=== PATIENT | female | born 1965 | race Caucasian/White ===

== ENCOUNTER 2023-12-18 11:01 | Observation (INO) ==
[2023-12-18 12:44] LABS: ABS Lymphocytes 0.6 10^3/uL (1.0-4.8); ABS Monocytes 0.2 10^3/uL (0.0-0.9); ABS Neutrophils 4.8 10^3/uL (1.5-7.6); Eosinophil % 0.1 %; Hematocrit 47.1 % (35-45); Hemoglobin 15.9 g/dL (11.5-14.3); Lymphocyte % 11.3 %; Mean Corpuscular Hemoglobin 33.6 pg (27-33); Mean Corpuscular Hgb Conc 33.7 g/dL (31-36); Mean Corpuscular Volume 99.7 fL (80-97); Mean Platelet Volume 8.5 fL (7.5-11.2); Nucleated Red Blood Cells % 0.1 %/100WBC (0.0-0.8); Platelet Count 344 10^3/uL (150-450); Red Blood Count 4.72 10^6/uL (3.63-4.92); Red Cell Distribution Width 14.6 % (12-17); White Blood Count 5.6 10^3/uL (3.8-11.8)
[2023-12-18 12:48] LABS: Urine Appearance Cloudy; Urine Bilirubin Negative (Negative); Urine Blood Negative (Negative); Urine Color Yellow; Urine Glucose Negative (Negative); Urine Ketones Negative (Negative); Urine Nitrite Negative (Negative); Urine Protein Negative (Negative); Urine Specific Gravity 1.014 (1.002-1.030); Urine Urobilinogen Negative (Negative)
[2023-12-18 12:52] LABS: Urine Bacteria 1+ (Absent); Urine Red Blood Cell Trace(0-2/hpf) (Absent); Urine Squamous Epithelial Cell Present (Absent); Urine White Blood Cell 3+(>20/hpf) (Absent)
[2023-12-18 13:06] LABS: ALT 20 U/L (7-52); Albumin/Globulin Ratio 1.1 (1-3); Alkaline Phosphatase 69 U/L (35-149); Anion Gap 4 mmol/L (2-16); Blood Urea Nitrogen 29 mg/dL (6-24); C Reactive Protein 2.95 mg/L (<8.01); CO2 Carbon Dioxide 31 mmol/L (22-32); Calcium 10.6 mg/dL (8.6-10.3); Chloride 104 mmol/L (101-111); Creatinine, Serum 1.45 mg/dL (0.51-0.95); Globulin 3.6 g/dL (2-4); Glucose 101 mg/dL (70-100); Lipase 23 U/L (11.0-82.0); Sodium 139 mmol/L (135-145); Total Bilirubin 0.6 mg/dL (0.2-1.0); Total Protein 7.6 g/dL (6.4-8.9); eGFR CKD-EPI 42.1 (>60)
[2023-12-18] MEDS ORDERED: Iodixanol (CONTRAST) 320 MG/ML 100 ML SDV IV ONE (13:14)
[2023-12-18] MEDS ORDERED: Midazolam 5 mg/5 ml VIAL 1 mg/ml 5 ml VIAL (5 mg) IV SLOW PU ONE (14:17)
[2023-12-18] MEDS ORDERED: Polyethylene Glycol 3350 17 GM PACKET PO PRN (19:19)
[2023-12-18] MEDS ORDERED: Senna TAB 8.6 mg TAB PO PRN (19:20)
[2023-12-18 20:09] LABS: Calcium 9.2 mg/dL (8.6-10.3); Creatinine, Serum 1.27 mg/dL (0.51-0.95); Magnesium 1.8 mg/dL (1.9-2.7); Potassium 3.4 mmol/L (3.5-5.0); eGFR CKD-EPI 49.3 (>60)
[2023-12-18 20:38] LABS: TSH Ultra Thyroid Stim Horm 4.15 mcIU/mL (0.34-5.60)
[2023-12-18] MEDS: Nystatin TOP POWDER 15 GM BTL TOPICAL SCH (21:59)
[2023-12-18] MEDS ORDERED: Magnesium Sulfate 2 gm BAG 2 GM/50 ML BAG IVPB ONE (22:09)
[2023-12-18] MEDS ORDERED: Potassium Chlor 20 meq TAB.ER PO ONE (22:09)
[2023-12-19] MEDS: KCL 20 MEQ/100 ML IVPREMIX 20 MEQ/100 ML BAG IV SCH ×2 (01:17→03:22)
[2023-12-19 05:52] LABS: ABS Basophils 0.1 10^3/uL (0.0-0.1); ABS Eosinophils 0.1 10^3/uL (0.0-0.5); ABS Lymphocytes 1.8 10^3/uL (1.0-4.8); ABS Monocytes 0.4 10^3/uL (0.0-0.9); ABS Neutrophils 1.5 10^3/uL (1.5-7.6); Eosinophil % 1.4 %; Hematocrit 43.3 % (35-45); Hemoglobin 14.6 g/dL (11.5-14.3); Mean Corpuscular Hemoglobin 33.5 pg (27-33); Mean Corpuscular Hgb Conc 33.7 g/dL (31-36); Mean Corpuscular Volume 99.5 fL (80-97); Mean Platelet Volume 8.3 fL (7.5-11.2); Platelet Count 294 10^3/uL (150-450); Red Blood Count 4.35 10^6/uL (3.63-4.92); Red Cell Distribution Width 14.5 % (12-17); White Blood Count 3.8 10^3/uL (3.8-11.8)
[2023-12-19 06:05] LABS: Calcium 9.3 mg/dL (8.6-10.3); Creatinine, Serum 1.28 mg/dL (0.51-0.95); Magnesium 2.7 mg/dL (1.9-2.7); Potassium 4.3 mmol/L (3.5-5.0); eGFR CKD-EPI 48.9 (>60)
[2023-12-19] MEDS ORDERED: cefTRIAXone 1 gm/50 mL D5W 1 GM/50 ML BAG IV SCH (14:00)
[2023-12-19] MEDS: Nystatin TOP POWDER 15 GM BTL TOPICAL SCH ×3 (14:13→20:02)
[2023-12-19] MEDS ORDERED: NS 0.9% 1000 ml BAG 1,000 ML IV SCH (14:45)
[2023-12-20 08:45] LABS: ABS Lymphocytes 1.2 10^3/uL (1.0-4.8); ABS Monocytes 0.4 10^3/uL (0.0-0.9); ABS Neutrophils 2.2 10^3/uL (1.5-7.6); ABS Nucleated RBC 0.01 10^3/ul; Eosinophil % 1.2 %; Hematocrit 44.3 % (35-45); Lymphocyte % 31.1 %; Mean Corpuscular Hemoglobin 33.7 pg (27-33); Mean Corpuscular Hgb Conc 33.9 g/dL (31-36); Mean Corpuscular Volume 99.3 fL (80-97); Mean Platelet Volume 8.4 fL (7.5-11.2); Nucleated Red Blood Cells % 0.1 %/100WBC (0.0-0.8); Platelet Count 337 10^3/uL (150-450); Red Blood Count 4.47 10^6/uL (3.63-4.92); Red Cell Distribution Width 14.3 % (12-17); White Blood Count 3.8 10^3/uL (3.8-11.8)
[2023-12-20 09:14] LABS: Creatinine, Serum 1.34 mg/dL (0.51-0.95); eGFR CKD-EPI 46.2 (>60)
[2023-12-20] MEDS: Nystatin TOP POWDER 15 GM BTL TOPICAL SCH ×2 (09:23→14:28)
[2023-12-20 10:10] VITALS: BP 111/74
[2023-12-20] MEDS ORDERED: Lidocaine 5% OINT TUBE TOPICAL PRN (13:06)
[2023-12-20] MEDS ORDERED: Lidocaine 4% GEL 10 GM TUBE TOPICAL ONE (13:32)
[2023-12-20] MEDS ORDERED: Lidocaine 2% JELLY 6 ML Topical TOPICAL ONE (14:00)
[2023-12-20] MEDS ORDERED: Nitrofurantoin (monohydrate/macrocrystals) 100 mg CAP PO SCH (21:00)
== END 2023-12-20 15:05 ==
LOC: ED 11:01 → EDHOLD 11:01 → SUATTDRO 17:12 → MED 20:34
PROVIDERS: ADMIT Internal Medicine; ATTEND Hospitalist

== ENCOUNTER 2024-01-18 10:48 | Inpatient (IN) ==
[2024-01-18] MEDS ORDERED: LORazepam 2 mg VIAL 1 ml ONE (10:52)
[2024-01-18] MEDS ORDERED: Lorazepam PYXIS KEY PRN ×3 (11:01→18:38)
[2024-01-18 11:22] LABS: ABS Lymphocytes 0.5 10^3/uL (1.0-4.8); ABS Monocytes 0.1 10^3/uL (0.0-0.9); Hematocrit 44.4 % (35-45); Hemoglobin 14.8 g/dL (11.5-14.3); Lymphocyte % 6.9 %; Mean Corpuscular Hemoglobin 33.8 pg (27-33); Mean Corpuscular Hgb Conc 33.4 g/dL (31-36); Mean Corpuscular Volume 101.3 fL (80-97); Mean Platelet Volume 8.7 fL (7.5-11.2); Platelet Count 414 10^3/uL (150-450); Red Blood Count 4.38 10^6/uL (3.63-4.92); Red Cell Distribution Width 14.3 % (12-17); White Blood Count 6.6 10^3/uL (3.8-11.8)
[2024-01-18] MEDS: LORazepam 2 mg VIAL 1 ml IV PUSH ONE ×2 (11:27→14:04)
[2024-01-18] MEDS: NS 0.9% 1000 ml BAG 1,000 ML IV ONE (11:28)
[2024-01-18 11:44] LABS: High Sens Troponin Baseline 27 pg/mL (<15)
[2024-01-18] MEDS: Linezolid 600 MG IVPREMIX(*) 600 MG/300 ML BAG IVPB ONE (11:57)
[2024-01-18 12:02] LABS: ALT 24 U/L (7-52); Albumin 3.7 g/dL (3.2-5.2); Albumin/Globulin Ratio 1.3 (1-3); Alkaline Phosphatase 64 U/L (35-149); Anion Gap 15 mmol/L (2-16); Blood Urea Nitrogen 29 mg/dL (6-24); C Reactive Protein 3.25 mg/L (<8.01); CO2 Carbon Dioxide 24 mmol/L (22-32); Calcium 9.7 mg/dL (8.6-10.3); Chloride 106 mmol/L (101-111); Creatinine, Serum 1.38 mg/dL (0.51-0.95); Globulin 2.8 g/dL (2-4); Glucose 115 mg/dL (70-100); Sodium 145 mmol/L (135-145); Total Bilirubin 0.5 mg/dL (0.2-1.0); Total Protein 6.5 g/dL (6.4-8.9); eGFR CKD-EPI 44.6 (>60)
[2024-01-18 12:13] LABS: INR 1.24 (0.83-1.13)
[2024-01-18 12:14] LABS: Activated Partial Thrombo Time 22.5 seconds (26.0-38.0)
[2024-01-18 12:29] LABS: Urine Appearance Clear; Urine Bilirubin Negative (Negative); Urine Blood Trace (Negative); Urine Color Colorless; Urine Glucose Negative (Negative); Urine Ketones Negative (Negative); Urine Nitrite Negative (Negative); Urine Protein Negative (Negative); Urine Specific Gravity 1.012 (1.002-1.030); Urine Urobilinogen Negative (Negative)
[2024-01-18 13:27] LABS: High Sensitivity Troponin 1 Hr 36 pg/mL (<15)
[2024-01-18 13:53] LABS: Magnesium 1.8 mg/dL (1.9-2.7)
[2024-01-18 14:04] LABS: Urine Bacteria Absent /HPF (Absent); Urine Red Blood Cell Absent /HPF (0-Trace); Urine Squamous Epithelial Cell Present /HPF (Absent); Urine White Blood Cell Trace(0-5/hpf) /HPF (0-Trace)
[2024-01-18] MEDS: levETIRAcetam 1000MG IVPREMIX 1,000 MG/100 ML BAG IVPB ONE (15:15)
[2024-01-18] MEDS ORDERED: LORazepam 2 mg VIAL 1 ml IV PUSH PRN (18:38)
[2024-01-18] MEDS: Magnesium Sulfate 2 gm BAG 2 GM/50 ML BAG IVPB ONE (19:59)
[2024-01-18] MEDS: Enoxaparin 40 MG/0.4 ML SYR SUBCUT SCH (20:00)
[2024-01-18] MEDS: Nystatin TOP POWDER 15 GM BTL TOPICAL SCH (20:06)
[2024-01-19] MEDS: Linezolid 600 MG IVPREMIX(*) 600 MG/300 ML BAG IVPB SCH (00:03)
[2024-01-19] MEDS: levETIRAcetam 500 MG IVPREMIX 500 MG/100 ML BAG IV SCH (03:16)
[2024-01-19 04:35] LABS: ABS Basophils 0.1 10^3/uL (0.0-0.1); ABS Lymphocytes 1.9 10^3/uL (1.0-4.8); ABS Monocytes 0.5 10^3/uL (0.0-0.9); ABS Neutrophils 3.4 10^3/uL (1.5-7.6); ABS Nucleated RBC 0.01 10^3/ul; Eosinophil % 0.2 %; Hemoglobin 13.4 g/dL (11.5-14.3); Lymphocyte % 32.3 %; Mean Corpuscular Hemoglobin 33.2 pg (27-33); Mean Corpuscular Hgb Conc 33.6 g/dL (31-36); Mean Corpuscular Volume 98.9 fL (80-97); Mean Platelet Volume 7.9 fL (7.5-11.2); Nucleated Red Blood Cells % 0.1 %/100WBC (0.0-0.8); Platelet Count 348 10^3/uL (150-450); Red Blood Count 4.05 10^6/uL (3.63-4.92); Red Cell Distribution Width 14.3 % (12-17); White Blood Count 5.9 10^3/uL (3.8-11.8)
[2024-01-19 05:10] LABS: Calcium 8.4 mg/dL (8.6-10.3); Creatinine, Serum 1.03 mg/dL (0.51-0.95); Magnesium 2.4 mg/dL (1.9-2.7); Potassium 3.3 mmol/L (3.5-5.0); eGFR CKD-EPI 63.4 (>60)
[2024-01-19] MEDS: KCL 20 MEQ/100 ML IVPREMIX 20 MEQ/100 ML BAG IV SCH (05:50)
[2024-01-19] MEDS: KCL 20 MEQ/100 ML IVPREMIX 20 MEQ/100 ML BAG ONE (07:32)
[2024-01-19] MEDS: Calcium/Vitamin D TAB 250/125 TAB PO SCH (15:12)
[2024-01-20 05:41] LABS: ABS Basophils 0.1 10^3/uL (0.0-0.1); ABS Lymphocytes 1.8 10^3/uL (1.0-4.8); ABS Monocytes 0.5 10^3/uL (0.0-0.9); ABS Neutrophils 2.8 10^3/uL (1.5-7.6); ABS Nucleated RBC 0.01 10^3/ul; Eosinophil % 0.3 %; Hematocrit 43.7 % (35-45); Hemoglobin 14.8 g/dL (11.5-14.3); Mean Corpuscular Hemoglobin 33.3 pg (27-33); Mean Corpuscular Hgb Conc 33.8 g/dL (31-36); Mean Corpuscular Volume 98.4 fL (80-97); Mean Platelet Volume 8.3 fL (7.5-11.2); Nucleated Red Blood Cells % 0.2 %/100WBC (0.0-0.8); Platelet Count 354 10^3/uL (150-450); Red Blood Count 4.44 10^6/uL (3.63-4.92); Red Cell Distribution Width 13.9 % (12-17); White Blood Count 5.1 10^3/uL (3.8-11.8)
[2024-01-20 05:58] LABS: Creatinine, Serum 0.94 mg/dL (0.51-0.95); Potassium 3.8 mmol/L (3.5-5.0); eGFR CKD-EPI 70.8 (>60)
[2024-01-20 10:58] LABS: Levetiracetam <1.0 mcg/mL
[2024-01-20] MEDS ORDERED: Lorazepam PYXIS KEY PRN (11:58)
[2024-01-20 13:01] LABS: Lamotrigine 5.9 mcg/mL (3.0-15.0)
[2024-01-20] MEDS: LORazepam 2 mg VIAL 1 ml IV PUSH ONE ×2 (13:36→13:44)
[2024-01-21 05:05] LABS: ABS Lymphocytes 1.5 10^3/uL (1.0-4.8); ABS Monocytes 0.3 10^3/uL (0.0-0.9); ABS Neutrophils 2.3 10^3/uL (1.5-7.6); Eosinophil % 0.6 %; Hematocrit 43.5 % (35-45); Hemoglobin 14.7 g/dL (11.5-14.3); Lymphocyte % 36.3 %; Mean Corpuscular Hemoglobin 33.3 pg (27-33); Mean Corpuscular Hgb Conc 33.7 g/dL (31-36); Mean Corpuscular Volume 98.9 fL (80-97); Platelet Count 310 10^3/uL (150-450); White Blood Count 4.1 10^3/uL (3.8-11.8)
[2024-01-21 06:07] LABS: Calcium 9.1 mg/dL (8.6-10.3); Creatinine, Serum 1.19 mg/dL (0.51-0.95); Potassium 4.3 mmol/L (3.5-5.0); eGFR CKD-EPI 53.3 (>60)
[2024-01-23] MEDS: Senna TAB 8.6 mg TAB PO PRN (08:31)
[2024-01-23 10:22] VITALS: BP 100/56
[2024-01-23] MEDS ORDERED: Polyethylene Glycol 3350 17 GM PACKET PO PRN (11:37)
[2024-01-23] MEDS ORDERED: Magnesium Hydroxide LIQ 30 ML UDC PO PRN (11:37)
== END 2024-01-23 13:02 | disposition home or self-care (01) | DRG 101 ==
LOC: ED 10:48 → EDHOLD 16:29 → SUATTDRO 16:29 → ICU 17:18 → MEDTELE 01-19 08:46
PROVIDERS: ADMIT Surgery Surgical Critical Care; ATTEND Internal Medicine

== ENCOUNTER 2024-04-20 08:22 | Observation (INO) ==
[2024-04-20 09:38] LABS: ABS Basophils 0.1 10^3/uL (0.0-0.1); ABS Lymphocytes 1.5 10^3/uL (1.0-4.8); ABS Monocytes 0.4 10^3/uL (0.0-0.9); ABS Neutrophils 4.1 10^3/uL (1.5-7.6); Eosinophil % 0.2 %; Hematocrit 41.3 % (35-45); Hemoglobin 13.9 g/dL (11.5-14.3); Lymphocyte % 24.5 %; Mean Corpuscular Hemoglobin 32.7 pg (27-33); Mean Corpuscular Hgb Conc 33.6 g/dL (31-36); Mean Corpuscular Volume 97.3 fL (80-97); Mean Platelet Volume 8.3 fL (7.5-11.2); Nucleated Red Blood Cells % 0.1 %/100WBC (0.0-0.8); Platelet Count 361 10^3/uL (150-450); Red Blood Count 4.25 10^6/uL (3.63-4.92); Red Cell Distribution Width 15.4 % (12-17); White Blood Count 6.1 10^3/uL (3.8-11.8)
[2024-04-20] MEDS: levETIRAcetam IV 250 MG in NS 0.9% 100 ml BAG 100 ML IVPB SCH (10:03)
[2024-04-20] MEDS: levETIRAcetam IV 250 MG in NS 0.9% 100 ml BAG 100 ML IVPB ONE ×2 (10:05→13:41)
[2024-04-20 10:42] LABS: Albumin 3.4 g/dL (3.2-5.2); Albumin/Globulin Ratio 1.5 (1-3); Calcium 8.9 mg/dL (8.6-10.3); Creatinine, Serum 1.21 mg/dL (0.51-0.95); Globulin 2.3 g/dL (2-4); Magnesium 1.8 mg/dL (1.9-2.7); Potassium 3.9 mmol/L (3.5-5.0); Total Bilirubin 0.4 mg/dL (0.2-1.0); Total Protein 5.7 g/dL (6.4-8.9); eGFR CKD-EPI 52.3 (>60)
[2024-04-20] MEDS: NS 0.9% 1000 ml BAG 1,000 ML IV ONE ×2 (10:48→17:50)
[2024-04-20] MEDS: cefTRIAXone 1 gm/50 mL D5W 1 GM/50 ML BAG IV ONE (12:06)
[2024-04-20] MEDS: Iodixanol (CONTRAST) 320 MG/ML 100 ML SDV IV ONE (16:01)
[2024-04-20] MEDS ORDERED: Polyethylene Glycol 3350 17 GM PACKET PO PRN (18:29)
[2024-04-20] MEDS ORDERED: Senna TAB 8.6 mg TAB PO PRN (18:29)
[2024-04-20] MEDS: Magnesium Sulfate 2 gm BAG 2 GM/50 ML BAG IVPB ONE (19:15)
[2024-04-20] MEDS: Enoxaparin 30 MG/0.3 ML SYR SUBCUT SCH (19:17)
[2024-04-20] MEDS ORDERED: guaiFENesin 100 mg/5 ml LIQ unit dose cup PO PRN (20:29)
[2024-04-20] MEDS ORDERED: Magnesium Hydroxide LIQ 30 ML UDC PO PRN (22:45)
[2024-04-20] MEDS: Polyethylene Glycol 3350 17 GM PACKET PO SCH (22:49)
[2024-04-20] MEDS: Senna TAB 8.6 mg TAB PO SCH (22:49)
[2024-04-20] MEDS: Nystatin TOP POWDER 15 GM BTL TOPICAL SCH (22:53)
[2024-04-20] MEDS: Magnesium Hydroxide LIQ 30 ML UDC PO SCH (23:56)
[2024-04-21] MEDS: levETIRAcetam 500 MG IVPREMIX 500 MG/100 ML BAG IV SCH (02:10)
[2024-04-21 06:17] LABS: ABS Monocytes 0.3 10^3/uL (0.0-0.9); ABS Neutrophils 3.9 10^3/uL (1.5-7.6); ABS Nucleated RBC 0.01 10^3/ul; Eosinophil % 0.2 %; Hematocrit 46.8 % (35-45); Lymphocyte % 18.5 %; Mean Corpuscular Hgb Conc 32.1 g/dL (31-36); Mean Corpuscular Volume 99.7 fL (80-97); Mean Platelet Volume 8.1 fL (7.5-11.2); Nucleated Red Blood Cells % 0.1 %/100WBC (0.0-0.8); Platelet Count 282 10^3/uL (150-450); Red Blood Count 4.69 10^6/uL (3.63-4.92); Red Cell Distribution Width 15.4 % (12-17); White Blood Count 5.2 10^3/uL (3.8-11.8)
[2024-04-21 06:38] LABS: Calcium 8.3 mg/dL (8.6-10.3); Creatinine, Serum 0.94 mg/dL (0.51-0.95); Magnesium 2.5 mg/dL (1.9-2.7); Potassium 4.3 mmol/L (3.5-5.0); eGFR CKD-EPI 70.8 (>60)
[2024-04-21] MEDS: Nitrofurantoin (monohydrate/macrocrystals) 100 mg CAP PO SCH (21:24)
[2024-04-22 15:46] VITALS: BP 99/67
[2024-04-23 12:59] LABS: Lamotrigine 4.8 mcg/mL (3.0-15.0)
== END 2024-04-22 18:15 ==
LOC: EDHOLD 08:22 → ED 08:22 → SUATTDRO 18:29 → MEDTELE 04-21 00:01
PROVIDERS: ADMIT Internal Medicine; ATTEND Internal Medicine

== ENCOUNTER 2024-12-14 20:38 | Inpatient (IN) ==
[2024-12-14] MEDS ORDERED: Vancomycin 1,000 MG in NS 0.9% 250 ml 250 ML IVPB SCH (21:00)
[2024-12-14 21:18] LABS: ABS Basophils 0.1 10^3/uL (0.0-0.1); ABS Lymphocytes 2.7 10^3/uL (1.0-4.8); ABS Monocytes 0.8 10^3/uL (0.0-0.9); ABS Neutrophils 8.5 10^3/uL (1.5-7.6); ABS Nucleated RBC 0.03 10^3/ul; Eosinophil % 0.1 %; Hematocrit 49.3 % (35-45); Hemoglobin 16.1 g/dL (11.5-14.3); Lymphocyte % 22.5 %; Mean Corpuscular Hgb Conc 32.6 g/dL (31-36); Mean Corpuscular Volume 101.3 fL (80-97); Mean Platelet Volume 10.4 fL (7.5-11.2); Nucleated Red Blood Cells % 0.3 %/100WBC (0.0-0.8); Platelet Count 313 10^3/uL (150-450); Red Blood Count 4.86 10^6/uL (3.63-4.92); Red Cell Distribution Width 15.3 % (12-17)
[2024-12-14] MEDS: Lactated Ringers SEPSIS* BAG 2,180 ML IV ONE (21:22)
[2024-12-14 21:28] LABS: Activated Partial Thrombo Time 27.2 seconds (26.0-38.0); INR 1.28 (0.85-1.14)
[2024-12-14 21:35] LABS: Venous Bicarbonate HCO3 27.6 mmol/L (24-28)
[2024-12-14 21:54] LABS: Albumin 3.3 g/dL (3.5-5.7); Albumin/Globulin Ratio 1.1 (1-3); C Reactive Protein 34.39 mg/L (<8.01); Calcium 9.4 mg/dL (8.6-10.3); Creatinine, Serum 1.82 mg/dL (0.51-0.95); Globulin 3.1 g/dL (2-4); Total Bilirubin 0.7 mg/dL (0.2-1.0); Total Protein 6.4 g/dL (6.4-8.9); eGFR CKD-EPI 31.8 (>60)
[2024-12-14] MEDS: Piperacillin/Tazobac 3.375 BAG 3.375 GM/100 ML BAG IV ONE (22:01)
[2024-12-14] MEDS: Acetaminophen IV 1 GM/100ML 1,000 MG/100 ML BAG IV ONE (22:18)
[2024-12-14 22:19] LABS: High Sensitivity Troponin 1 Hr 57 pg/mL (<15)
[2024-12-14] MEDS: Vancomycin 1,250 MG in NS 0.9% 250 ml 250 ML IVPB ONE (22:21)
[2024-12-14] MEDS: Iodixanol 320 (CONTRAST) 100 ML SDV IV ONE (23:26)
[2024-12-14 23:51] LABS: Urine Appearance Clear; Urine Bilirubin Negative (Negative); Urine Blood 1+ (Negative); Urine Color Light-Yellow; Urine Glucose Negative (Negative); Urine Ketones Negative (Negative); Urine Nitrite Negative (Negative); Urine Protein Trace (Negative); Urine Specific Gravity 1.027 (1.002-1.030); Urine Urobilinogen Negative (Negative); Urine pH 6.5 (5.0-8.0)
[2024-12-15 00:06] LABS: Urine Bacteria Absent /HPF (Absent); Urine Red Blood Cell 3+(>10/hpf) /HPF (0-Trace); Urine Squamous Epithelial Cell Present /HPF (Absent); Urine White Blood Cell 3+(>20/hpf) /HPF (0-Trace)
[2024-12-15] MEDS: Heparin 5000 UNITS/ML 1 mL VIAL IV SCH (00:21)
[2024-12-15] MEDS: Heparin DRIP 25,000 UNITS BAG 25,000 UNITS/250 ML BAG IV SCH (00:23)
[2024-12-15 01:15] LABS: Blood Urea Nitrogen 32 mg/dL (6-24); Creatinine, Serum 1.61 mg/dL (0.51-0.95); eGFR CKD-EPI 36.9 (>60)
[2024-12-15 01:52] LABS: Anion Gap 17 mmol/L (2-16); CO2 Carbon Dioxide 22 mmol/L (22-32); Calcium 7.8 mg/dL (8.6-10.3); Chloride 120 mmol/L (101-111); Glucose 182 mg/dL (70-100); Sodium 159 mmol/L (135-145)
[2024-12-15] MEDS: D5W 1/2 NS 1000 ml BAG 1,000 ML IV SCH (02:13)
[2024-12-15 02:27] LABS: Potassium, Whole Blood 3.8 mmol/L (3.4-4.5)
[2024-12-15 02:31] LABS: Hematocrit 40.6 % (35-45); Hemoglobin 13.1 g/dL (11.5-14.3); Mean Corpuscular Hemoglobin 33.1 pg (27-33); Mean Corpuscular Hgb Conc 32.3 g/dL (31-36); Mean Corpuscular Volume 102.6 fL (80-97); Mean Platelet Volume 9.9 fL (7.5-11.2); Platelet Count 243 10^3/uL (150-450); Red Blood Count 3.95 10^6/uL (3.63-4.92); Red Cell Distribution Width 14.9 % (12-17); White Blood Count 12.7 10^3/uL (3.8-11.8)
[2024-12-15] MEDS ORDERED: Sulfur Hexaflouride MICROSPHR 25 MG VIAL IV PRN (02:46)
[2024-12-15] MEDS ORDERED: Azithromycin 500 mg/250 ml NS 500 MG/250 ML BAG IVPB SCH ×2 (03:00→05:00)
[2024-12-15] MEDS: cefTRIAXone 1 gm/50 mL D5W 1 GM/50 ML BAG IV SCH ×3 (03:14→17:20)
[2024-12-15] MEDS: Azithromycin 500 mg/250 ml NS 500 MG/250 ML BAG IVPB SCH (05:36)
[2024-12-15 06:58] LABS: ABS Basophils 0.2 10^3/uL (0.0-0.1); ABS Lymphocytes 1.6 10^3/uL (1.0-4.8); ABS Monocytes 0.6 10^3/uL (0.0-0.9); ABS Neutrophils 9.1 10^3/uL (1.5-7.6); ABS Nucleated RBC 0.01 10^3/ul; Eosinophil % 0.1 %; Hemoglobin 12.2 g/dL (11.5-14.3); Lymphocyte % 13.8 %; Mean Corpuscular Hemoglobin 33.7 pg (27-33); Mean Corpuscular Hgb Conc 32.9 g/dL (31-36); Mean Corpuscular Volume 102.5 fL (80-97); Mean Platelet Volume 10.2 fL (7.5-11.2); Nucleated Red Blood Cells % 0.1 %/100WBC (0.0-0.8); Platelet Count 209 10^3/uL (150-450); Red Blood Count 3.61 10^6/uL (3.63-4.92); Red Cell Distribution Width 15.5 % (12-17); White Blood Count 11.5 10^3/uL (3.8-11.8)
[2024-12-15 07:02] LABS: Calcium 7.9 mg/dL (8.6-10.3); Creatinine, Serum 1.53 mg/dL (0.51-0.95); Potassium 3.3 mmol/L (3.5-5.0); eGFR CKD-EPI 39.2 (>60)
[2024-12-15] MEDS ORDERED: Senna/Docusate 8.6/50 mg (NF) TAB PO SCH (09:00)
[2024-12-15] MEDS: Senna TAB 8.6 mg TAB PO SCH (11:07)
[2024-12-15] MEDS: Docusate LIQ 100 MG/10 ML UDC PO SCH (11:07)
[2024-12-15] MEDS: Lactated Ringers 1000 ml BAG 1,000 ML IV SCH (11:28)
[2024-12-15] MEDS: levETIRAcetam IV 250 MG in NS 0.9% 100 ml BAG 100 ML IVPB SCH (12:53)
[2024-12-15] MEDS ORDERED: Etomidate 40 mg/20 ml (2 MG/ML) 20 ml VIAL (40 mg) ONE (13:12)
[2024-12-15] MEDS ORDERED: Midazolam 10 mg/10 ml VIAL 1 mg/ml 10 ml VIAL (10 mg) ONE (13:12)
[2024-12-15 13:14] LABS: Calcium 6.9 mg/dL (8.6-10.3); Creatinine, Serum 1.06 mg/dL (0.51-0.95); Potassium 3.2 mmol/L (3.5-5.0); eGFR CKD-EPI 60.9 (>60)
[2024-12-15 15:27] LABS: Anion Gap 8 mmol/L (2-16); Blood Urea Nitrogen 23 mg/dL (6-24); CO2 Carbon Dioxide 26 mmol/L (22-32); Calcium 8.2 mg/dL (8.6-10.3); Chloride 119 mmol/L (101-111); Creatinine, Serum 1.15 mg/dL (0.51-0.95); Glucose 100 mg/dL (70-100); Sodium 153 mmol/L (135-145); eGFR CKD-EPI 55.2 (>60)
[2024-12-15] MEDS: levETIRAcetam 500 MG IVPREMIX 500 MG/100 ML BAG IV SCH (17:49)
[2024-12-15 18:48] LABS: Calcium 7.9 mg/dL (8.6-10.3); Creatinine, Serum 1.06 mg/dL (0.51-0.95); eGFR CKD-EPI 60.9 (>60)
[2024-12-15] MEDS: KCL 20 MEQ/100 ML IVPREMIX 20 MEQ/100 ML BAG IV SCH (19:58)
[2024-12-15] MEDS: Norepinephrine 32MCG/ML D5WBAG 8,000 MCG/250 ML BAG IV SCH (22:50)
[2024-12-15] MEDS: Propofol 10 mg/ml 100 ML BTL 1,000 MG/100 ML BTL IV SCH (22:55)
[2024-12-15] MEDS: Midazolam 2 mg/2 ml VIAL 1 mg/ml 2 ml VIAL (2 mg) IV SLOW PU ONE (23:34)
[2024-12-15] MEDS: fentaNYL 100 mcg/2 ml 50 MCG/ML VIAL IV SLOW PU PRN (23:36)
[2024-12-16] MEDS: Etomidate 40 mg/20 ml (2 MG/ML) 20 ml VIAL (40 mg) ONE (01:29)
[2024-12-16] MEDS: Rocuronium 50 mg VIAL 10 mg/ml 5 ml VIAL (50 mg) ONE (01:29)
[2024-12-16 02:38] LABS: Hematocrit 37.3 % (35-45); Hemoglobin 12.2 g/dL (11.5-14.3); Mean Corpuscular Hemoglobin 33.4 pg (27-33); Mean Corpuscular Hgb Conc 32.7 g/dL (31-36); Mean Corpuscular Volume 102.3 fL (80-97); Mean Platelet Volume 10.3 fL (7.5-11.2); Platelet Count 274 10^3/uL (150-450); Red Blood Count 3.64 10^6/uL (3.63-4.92); Red Cell Distribution Width 14.9 % (12-17); White Blood Count 16.7 10^3/uL (3.8-11.8)
[2024-12-16] MEDS: Midazolam 2 mg/2 ml VIAL 1 mg/ml 2 ml VIAL (2 mg) ONE (02:52)
[2024-12-16] MEDS: Midazolam 2 mg/2 ml VIAL 1 mg/ml 2 ml VIAL (2 mg) IV SLOW PU ONE (02:53)
[2024-12-16] MEDS: Famotidine IV 10 MG/ML 2 ml VIAL (20 mg) IV SLOW PU SCH (02:54)
[2024-12-16 03:08] LABS: Albumin 2.5 g/dL (3.5-5.7); Albumin/Globulin Ratio 1.1 (1-3); Creatinine, Serum 1.02 mg/dL (0.51-0.95); Globulin 2.2 g/dL (2-4); Magnesium 1.8 mg/dL (1.9-2.7); Potassium 3.5 mmol/L (3.5-5.0); Total Bilirubin 0.8 mg/dL (0.2-1.0); Total Protein 4.7 g/dL (6.4-8.9); eGFR CKD-EPI 63.8 (>60)
[2024-12-16 03:12] LABS: ABS Eosinophils 0.1 10^3/uL (0.0-0.5); ABS Lymphocytes 2.5 10^3/uL (1.0-4.8); ABS Monocytes 0.4 10^3/uL (0.0-0.9); ABS Neutrophils 13.7 10^3/uL (1.5-7.6); ABS Nucleated RBC 0.08 10^3/ul; Eosinophil % 0.5 %; Lymphocyte % 14.9 %; Nucleated Red Blood Cells % 0.5 %/100WBC (0.0-0.8)
[2024-12-16] MEDS: Chlorhexidine MOUTHWASH 0.12% 15 ML UDC TOPICAL SCH (03:18)
[2024-12-16] MEDS: Potassium Chloride LIQUID 20 MEQ/15 ML LIQUID PO ONE ×2 (03:19→11:10)
[2024-12-16] MEDS: Magnesium Sulfate 2 gm BAG 2 GM/50 ML BAG IVPB ONE ×2 (03:43→11:10)
[2024-12-16] MEDS: KCL 20 MEQ/100 ML IVPREMIX 20 MEQ/100 ML BAG IV SCH (03:44)
[2024-12-16] MEDS ORDERED: D5W 500 ml BAG 500 ML IV SCH (05:00)
[2024-12-16 05:43] LABS: Resp Rate 16
[2024-12-16 05:44] LABS: PCO2 Arterial 35 mmHg (35-45); PO2 Arterial 119 mmHg (80-100)
[2024-12-16] MEDS: Azithromycin 500 mg/250 ml NS 500 MG/250 ML BAG IVPB SCH (06:05)
[2024-12-16] MEDS: Levothyroxine 100 MCG/5 ML VIAL IV SCH (07:44)
[2024-12-16] MEDS: Senna TAB 8.6 mg TAB NG TUBE SCH (10:01)
[2024-12-16] MEDS: Enoxaparin 60 MG/0.6 ML SYR SUBCUT SCH (10:02)
[2024-12-16 15:40] LABS: C Reactive Protein 90.68 mg/L (<8.01); Phosphorus 2.1 mg/dL (2.5-5.0)
[2024-12-16 17:05] LABS: Anion Gap 4 mmol/L (2-16); Blood Urea Nitrogen 13 mg/dL (6-24); CO2 Carbon Dioxide 23 mmol/L (22-32); Calcium 7.7 mg/dL (8.6-10.3); Chloride 116 mmol/L (101-111); Creatinine, Serum 1.04 mg/dL (0.51-0.95); Glucose 217 mg/dL (70-100); Sodium 143 mmol/L (135-145); eGFR CKD-EPI 62.3 (>60)
[2024-12-16] MEDS: levETIRAcetam 500 MG IVPREMIX 500 MG/100 ML BAG IV SCH (17:34)
[2024-12-17 04:16] LABS: ABS Basophils 0.1 10^3/uL (0.0-0.1); ABS Eosinophils 0.1 10^3/uL (0.0-0.5); ABS Lymphocytes 1.8 10^3/uL (1.0-4.8); ABS Monocytes 0.4 10^3/uL (0.0-0.9); ABS Neutrophils 8.8 10^3/uL (1.5-7.6); ABS Nucleated RBC 0.02 10^3/ul; Eosinophil % 0.8 %; Hematocrit 32.7 % (35-45); Hemoglobin 10.7 g/dL (11.5-14.3); Lymphocyte % 16.1 %; Mean Corpuscular Hemoglobin 33.3 pg (27-33); Mean Corpuscular Hgb Conc 32.9 g/dL (31-36); Mean Corpuscular Volume 101.2 fL (80-97); Mean Platelet Volume 10.2 fL (7.5-11.2); Nucleated Red Blood Cells % 0.2 %/100WBC (0.0-0.8); Platelet Count 263 10^3/uL (150-450); Red Blood Count 3.23 10^6/uL (3.63-4.92); Red Cell Distribution Width 14.9 % (12-17); White Blood Count 11.1 10^3/uL (3.8-11.8)
[2024-12-17 04:55] LABS: Albumin 2.4 g/dL (3.5-5.7); Albumin/Globulin Ratio 1.1 (1-3); Calcium 7.4 mg/dL (8.6-10.3); Creatinine, Serum 0.99 mg/dL (0.51-0.95); Globulin 2.1 g/dL (2-4); Magnesium 2.5 mg/dL (1.9-2.7); Potassium 4.8 mmol/L (3.5-5.0); Total Bilirubin 0.5 mg/dL (0.2-1.0); Total Protein 4.5 g/dL (6.4-8.9); eGFR CKD-EPI 66.1 (>60)
[2024-12-17] MEDS: Calcium Gluconate 2 GM in NS 0.9% 100 ml BAG 100 ML IVPB ONE (09:15)
[2024-12-17] MEDS: CALCIUM GLUCONATE 1GM/50ML NS BAG IV SCH (10:35)
[2024-12-17] MEDS: Sodium Phosphate IV 10 MMOL in NS 0.9% 250 ml 250 ML IV ONE (14:50)
[2024-12-18 04:39] LABS: Hematocrit 32.4 % (35-45); Hemoglobin 10.7 g/dL (11.5-14.3); Mean Corpuscular Hemoglobin 33.4 pg (27-33); Mean Corpuscular Hgb Conc 33.1 g/dL (31-36); Mean Platelet Volume 10.4 fL (7.5-11.2); Platelet Count 270 10^3/uL (150-450); Red Blood Count 3.21 10^6/uL (3.63-4.92); Red Cell Distribution Width 14.8 % (12-17); White Blood Count 8.2 10^3/uL (3.8-11.8)
[2024-12-18 05:28] LABS: Potassium 4.7 mmol/L (3.5-5.0)
[2024-12-18 05:29] LABS: Albumin 2.2 g/dL (3.5-5.7); Albumin/Globulin Ratio 0.9 (1-3); Calcium 7.7 mg/dL (8.6-10.3); Creatinine, Serum 0.87 mg/dL (0.51-0.95); Globulin 2.4 g/dL (2-4); Total Bilirubin 0.4 mg/dL (0.2-1.0); Total Protein 4.6 g/dL (6.4-8.9); eGFR CKD-EPI 77.2 (>60)
[2024-12-18 05:34] LABS: Macrocytosis 1+
[2024-12-18 05:35] LABS: ABS Basophils 0.1 10^3/uL (0.0-0.1); ABS Eosinophils 0.1 10^3/uL (0.0-0.5); ABS Lymphocytes 1.5 10^3/uL (1.0-4.8); ABS Monocytes 0.4 10^3/uL (0.0-0.9); ABS Neutrophils 6.1 10^3/uL (1.5-7.6); ABS Nucleated RBC 0.02 10^3/ul; Eosinophil % 1.3 %; Lymphocyte % 18.6 %; Nucleated Red Blood Cells % 0.3 %/100WBC (0.0-0.8)
[2024-12-18] MEDS: Acetaminophen IV 1 GM/100ML 1,000 MG/100 ML BAG IV PRN (05:46)
[2024-12-19 05:44] LABS: ABS Eosinophils 0.1 10^3/uL (0.0-0.5); ABS Lymphocytes 1.7 10^3/uL (1.0-4.8); ABS Monocytes 0.4 10^3/uL (0.0-0.9); ABS Neutrophils 3.4 10^3/uL (1.5-7.6); ABS Nucleated RBC 0.01 10^3/ul; Eosinophil % 1.7 %; Hemoglobin 10.7 g/dL (11.5-14.3); Lymphocyte % 29.6 %; Mean Corpuscular Hemoglobin 33.9 pg (27-33); Mean Corpuscular Hgb Conc 33.5 g/dL (31-36); Mean Corpuscular Volume 101.3 fL (80-97); Mean Platelet Volume 10.3 fL (7.5-11.2); Nucleated Red Blood Cells % 0.2 %/100WBC (0.0-0.8); Platelet Count 256 10^3/uL (150-450); Red Blood Count 3.16 10^6/uL (3.63-4.92); Red Cell Distribution Width 15.4 % (12-17); White Blood Count 5.6 10^3/uL (3.8-11.8)
[2024-12-19 07:23] LABS: Albumin 2.2 g/dL (3.5-5.7); Calcium 7.8 mg/dL (8.6-10.3); Creatinine, Serum 0.87 mg/dL (0.51-0.95); Globulin 2.3 g/dL (2-4); Magnesium 1.8 mg/dL (1.9-2.7); Total Bilirubin 0.4 mg/dL (0.2-1.0); Total Protein 4.5 g/dL (6.4-8.9); eGFR CKD-EPI 77.2 (>60)
[2024-12-19] MEDS: Albuterol/Ipratropium NEB.SOL (2.5/0.5 MG) 3 ML NEB.SOLN INH SCH (08:11)
[2024-12-19] MEDS: Albuterol/Ipratropium NEB.SOL (2.5/0.5 MG) 3 ML NEB.SOLN ONE (08:12)
[2024-12-19 08:15] LABS: Venous Bicarbonate HCO3 29.5 mmol/L (24-28)
[2024-12-19] MEDS: methylPREDNISolone SOD SUCC 125 mg 2 ML VIAL IV ONE (08:15)
[2024-12-19] MEDS: Magnesium Sulfate 2 gm BAG 2 GM/50 ML BAG IVPB ONE (08:30)
[2024-12-19] MEDS ORDERED: Albuterol/Ipratropium NEB.SOL (2.5/0.5 MG) 3 ML NEB.SOLN INH PRN (09:01)
[2024-12-19] MEDS ORDERED: methylPREDNISolone SOD SUCC 40 mg/ml 1 ml VIAL IV SCH (10:00)
[2024-12-19] MEDS: Propofol 10 mg/ml 100 ML BTL 1,000 MG/100 ML BTL IV SCH (23:00)
[2024-12-19] MEDS: Rocuronium 50 mg VIAL 10 mg/ml 5 ml VIAL (50 mg) ONE ×3 (23:11)
[2024-12-19] MEDS: Propofol 10 mg/ml 100 ML BTL 1,000 MG/100 ML BTL ONE (23:54)
[2024-12-20] MEDS: Chlorhexidine MOUTHWASH 0.12% 15 ML UDC TOPICAL SCH (02:31)
[2024-12-20 04:56] LABS: Hematocrit 34.2 % (35-45); Hemoglobin 11.4 g/dL (11.5-14.3); Mean Corpuscular Hemoglobin 33.7 pg (27-33); Mean Corpuscular Hgb Conc 33.5 g/dL (31-36); Mean Corpuscular Volume 100.7 fL (80-97); Mean Platelet Volume 10.1 fL (7.5-11.2); Platelet Count 352 10^3/uL (150-450); Red Cell Distribution Width 14.8 % (12-17); White Blood Count 8.3 10^3/uL (3.8-11.8)
[2024-12-20 05:21] LABS: Albumin 2.6 g/dL (3.5-5.7); Albumin/Globulin Ratio 1.1 (1-3); Calcium 8.4 mg/dL (8.6-10.3); Creatinine, Serum 1.03 mg/dL (0.51-0.95); Globulin 2.4 g/dL (2-4); Magnesium 2.3 mg/dL (1.9-2.7); Phosphorus 3.2 mg/dL (2.5-5.0); Potassium 4.2 mmol/L (3.5-5.0); Total Bilirubin 0.4 mg/dL (0.2-1.0)
[2024-12-20] MEDS: cefTRIAXone 1 gm/50 mL D5W 1 GM/50 ML BAG IV SCH (06:02)
[2024-12-20] MEDS: Enoxaparin 60 MG/0.6 ML SYR SUBCUT SCH ×2 (11:46→22:16)
[2024-12-21 05:08] LABS: Hematocrit 29.5 % (35-45); Hemoglobin 9.9 g/dL (11.5-14.3); Mean Corpuscular Hemoglobin 33.8 pg (27-33); Mean Corpuscular Hgb Conc 33.7 g/dL (31-36); Mean Corpuscular Volume 100.5 fL (80-97); Platelet Count 259 10^3/uL (150-450); Red Blood Count 2.93 10^6/uL (3.63-4.92); Red Cell Distribution Width 14.8 % (12-17); White Blood Count 5.8 10^3/uL (3.8-11.8)
[2024-12-21 05:52] LABS: Calcium 7.3 mg/dL (8.6-10.3); Creatinine, Serum 0.86 mg/dL (0.51-0.95); eGFR CKD-EPI 78.3 (>60)
[2024-12-21] MEDS: Polyethylene Glycol 3350 17 GM PACKET NG TUBE SCH (07:58)
[2024-12-22 06:08] LABS: ABS Eosinophils 0.1 10^3/uL (0.0-0.5); ABS Lymphocytes 1.7 10^3/uL (1.0-4.8); ABS Monocytes 0.6 10^3/uL (0.0-0.9); ABS Neutrophils 3.9 10^3/uL (1.5-7.6); ABS Nucleated RBC 0.03 10^3/ul; Eosinophil % 0.9 %; Hematocrit 34.6 % (35-45); Hemoglobin 11.3 g/dL (11.5-14.3); Lymphocyte % 26.8 %; Mean Corpuscular Hemoglobin 34.2 pg (27-33); Mean Corpuscular Hgb Conc 32.8 g/dL (31-36); Mean Corpuscular Volume 104.4 fL (80-97); Mean Platelet Volume 10.2 fL (7.5-11.2); Nucleated Red Blood Cells % 0.6 %/100WBC (0.0-0.8); Platelet Count 255 10^3/uL (150-450); Red Blood Count 3.31 10^6/uL (3.63-4.92); Red Cell Distribution Width 15.7 % (12-17); White Blood Count 6.3 10^3/uL (3.8-11.8)
[2024-12-22 06:35] LABS: Calcium 7.9 mg/dL (8.6-10.3); Creatinine, Serum 0.76 mg/dL (0.51-0.95); Magnesium 2.2 mg/dL (1.9-2.7); Phosphorus 2.7 mg/dL (2.5-5.0); Potassium 4.5 mmol/L (3.5-5.0); eGFR CKD-EPI 90.8 (>60)
[2024-12-23 05:42] LABS: Hematocrit 32.6 % (35-45); Hemoglobin 10.9 g/dL (11.5-14.3); Mean Corpuscular Hemoglobin 34.1 pg (27-33); Mean Corpuscular Hgb Conc 33.5 g/dL (31-36); Mean Corpuscular Volume 101.9 fL (80-97); Mean Platelet Volume 10.1 fL (7.5-11.2); Platelet Count 369 10^3/uL (150-450); Red Cell Distribution Width 15.7 % (12-17); White Blood Count 7.4 10^3/uL (3.8-11.8)
[2024-12-23 06:20] LABS: Calcium 7.8 mg/dL (8.6-10.3); Creatinine, Serum 0.73 mg/dL (0.51-0.95); Phosphorus 2.7 mg/dL (2.5-5.0); Potassium 4.6 mmol/L (3.5-5.0); eGFR CKD-EPI 95.3 (>60)
[2024-12-23 07:13] LABS: Albumin 2.4 g/dL (3.5-5.7)
[2024-12-23 07:20] LABS: ABS Basophils 0.1 10^3/uL (0.0-0.1); ABS Lymphocytes 2.3 10^3/uL (1.0-4.8); ABS Monocytes 0.7 10^3/uL (0.0-0.9); ABS Neutrophils 4.3 10^3/uL (1.5-7.6); ABS Nucleated RBC 0.04 10^3/ul; Eosinophil % 0.7 %; Lymphocyte % 30.9 %; Nucleated Red Blood Cells % 0.5 %/100WBC (0.0-0.8)
[2024-12-23] MEDS: fentaNYL 100 mcg/2 ml 50 MCG/ML VIAL IV SLOW PU PRN (09:41)
[2024-12-24 05:15] LABS: Hematocrit 34.4 % (35-45); Hemoglobin 11.5 g/dL (11.5-14.3); Mean Corpuscular Hemoglobin 33.9 pg (27-33); Mean Corpuscular Hgb Conc 33.5 g/dL (31-36); Mean Corpuscular Volume 101.1 fL (80-97); Mean Platelet Volume 9.8 fL (7.5-11.2); Platelet Count 394 10^3/uL (150-450); Red Blood Count 3.41 10^6/uL (3.63-4.92); Red Cell Distribution Width 15.7 % (12-17); White Blood Count 6.9 10^3/uL (3.8-11.8)
[2024-12-24 05:32] LABS: ABS Eosinophils 0.1 10^3/uL (0.0-0.5); ABS Lymphocytes 2.2 10^3/uL (1.0-4.8); ABS Monocytes 0.5 10^3/uL (0.0-0.9); ABS Nucleated RBC 0.02 10^3/ul; Eosinophil % 1.2 %; Lymphocyte % 31.7 %; Nucleated Red Blood Cells % 0.3 %/100WBC (0.0-0.8)
[2024-12-24 05:46] LABS: Calcium 8.1 mg/dL (8.6-10.3); Creatinine, Serum 0.81 mg/dL (0.51-0.95); eGFR CKD-EPI 84.1 (>60)
[2024-12-24] MEDS ORDERED: fentaNYL 100 mcg/2 ml 50 MCG/ML VIAL IV SLOW PU PRN (13:30)
[2024-12-24] MEDS: Midazolam PREMIXBAG 1 MG/ML NS 100 ML IV SCH (13:53)
[2024-12-24] MEDS: fentaNYL INFUSION 50 mcg/mL VL 2,500 MCG/50 ML VIAL IV SCH (13:54)
[2024-12-24] MEDS: Midazolam 2 mg/2 ml VIAL 1 mg/ml 2 ml VIAL (2 mg) IV SLOW PU PRN (14:10)
[2024-12-24 14:34] VITALS: BP 105/58
[2024-12-24] MEDS: Atropine 1% (ORAL/SL) 15 ML BTL SL PRN (23:09)
== END 2024-12-25 09:55 | disposition expired | DRG 870 ==
LOC: ED 20:38 → SUATTDRO 12-15 00:44 → EDHOLD 12-15 00:44 → ICU 12-15 04:31
PROVIDERS: ADMIT Student in an Organized Health Care Education/Training Program; ATTEND Student in an Organized Health Care Education/Training Program